=== PATIENT | female | born 1965 | race Caucasian/White ===

== ENCOUNTER 2017-01-08 13:51 | Emergency (ER) | payer OTHER ==
--- NOTE | 2017-01-08 14:39 | DIAGNOSTIC IMAGING REPORT ---
PROCEDURE: XR CHEST 1 VIEW INDICATION: SOB TECHNIQUE: Portable AP view 230 pm COMPARISON: Chest 06/15/2011 FINDINGS: Lungs are clear. Heart and mediastinum are normal. Thorax is normal. IMPRESSION: 1. Negative chest.
--- NOTE | 2017-01-08 17:06 | DIAGNOSTIC IMAGING REPORT ---
PROCEDURE: US VENOUS - BILATERAL EXT INDICATION: SWELLING TECHNIQUE: Color Doppler duplex imaging of the deep and superficial venous system without and with compression. COMPARISON: None. FINDINGS: RIGHT LOWER EXTREMITY: Deep and superficial venous system of the right lower extremity is within normal limits. There is no evidence of deep vein thrombosis or superficial thrombophlebitis. There is calf edema. LEFT LOWER EXTREMITY: Deep and superficial venous system of the left lower extremity is within normal limits. There is no evidence of deep vein thrombosis or superficial thrombophlebitis. There is calf edema. IMPRESSION: 1. Negative venous ultrasound of the bilateral lower extremities. 2. Bilateral calf edema.
--- NOTE | 2017-01-08 17:53 | DIAGNOSTIC IMAGING REPORT ---
PROCEDURE: CTA THORAX WITH CONTRAST INDICATION: SHORTNESS OF BREATH TECHNIQUE: 84 ml of Isovue 370 was injected intravenously and axial images were obtained of the entire thorax with 3D sagittal and coronal MIP reconstructions. COMPARISON: Chest x-ray 01/08/2017. FINDINGS: No evidence of pulmonary emboli. Mild subpleural fibrosis, primarily in the left upper lobe. Minor emphysematous changes. No infiltrates. Mild hilar adenopathy. No effusion. Normal aorta without dissection or aneurysm. Minor coronary atherosclerosis. Normal heart size. Visualized upper abdomen is unremarkable. Mild degenerative changes of the spine. IMPRESSION: 1. No evidence of pulmonary emboli, aortic dissection or aneurysm 2. Mild subpleural fibrosis and minor emphysematous changes 3. Results discussed with Dr. Lan
--- NOTE | 2017-01-08 17:54 | DIAGNOSTIC IMAGING REPORT ---
PROCEDURE: CT ABD/PELVIS WITH CONTRAST CLINICAL INDICATION: ABDOMINAL PAIN TECHNIQUE: 120 ml of Isovue 300 were injected intravenously and axial images were obtained of the entire abdomen and pelvis with sagittal and coronal reformations. COMPARISON: CT abdomen/pelvis 06/15/2011. FINDINGS: ABDOMEN: Lung base are clear. Heart size is normal. Hepatomegaly (20.4 cm) with stable 1.8 cm hypoenhancing lesion in the left hepatic lobe medial segment, adjacent to the falciform ligament, likely focal fat infiltration. Cholecystectomy. Pancreas, spleen, left adrenal gland and kidneys are unremarkable. There is thickening of the right adrenal gland, unchanged. Small retrocrural, mesenteric and periaortic lymph nodes. Midline surgical scar but no evidence of a hernia. Right lower quadrant surgical suture in the region of the cecum. There is a long segment of thickened distal ileum with some fecalization of the small bowel proximal to this abnormal segment. Proximal to the fecalization, there are a few moderately dilated loops of small bowel with air-fluid levels. PELVIS: Redundant sigmoid. Appendix not visualized. Hysterectomy. Adnexa and bladder are unremarkable. Bones are unremarkable. IMPRESSION: 1. Surgical changes in the region of the cecum with a long segment of thickened distal ileum preceded by a short segment of fecalization which itself is preceded by several moderately dilated loops of small bowel. Findings are suggestive of a functional partial small obstruction, secondary to Crohn's disease. 2. Hepatomegaly 3. Midline ventral surgical scar but no evidence of a hernia 4. Cholecystectomy and hysterectomy 5. Results discussed with Dr. Lan All CT scans at this facility use dose modulation, iterative reconstruction, and/or weight-based dosing when appropriate to reduce radiation dose to as low as reasonably achievable.
--- NOTE | 2017-01-08 19:58 | ED ORDER SUMMARY ---
..... Patient: RODGER MAYES OrderSheet [facility] VisitID: [id number] [address] [place] [address] 51y, F Registration Date/Time: 01/08/2017 ORDER SHEET Weight: 70.7 kg (stated) Allergies: Cefzil, Cipro, Levofloxacin, PCN GENERAL ORDERS: Chest 1V Urgent (14:02 01/08/2017 Nilda DUONG) (Ack 14:21 Marie Orona) (14:37 Jenny) Strategic Account Manager (Continuous) (14:02 01/08/2017 Nilda DUONG) (15:53 MWinterer R.N.) CBC w Diff Urgent (14:02 01/08/2017 Nilda DUONG) (Ack 14:21 Marie Orona) (15:57 MWinterer R.N.) CMP Urgent (14:02 01/08/2017 Nilda DUONG) (Ack 14:21 Marie Orona) (15:57 MWinterer R.N.) UA-Culture if indicated Urgent (14:02 01/08/2017 Nilda DUONG) (Ack 14:21 Marie Orona) PT with INR Urgent (14:02 01/08/2017 Nilda DUONG) (Ack 14:21 Marie Orona) (15:57 MWinterer R.N.) PTT Urgent (14:02 01/08/2017 Nilda DUONG) (Ack 14:21 Marie Orona) (15:57 MWinterer R.N.) D-Dimer Urgent (14:02 01/08/2017 Nilda DUONG) (Ack 14:21 Marie Orona) (15:57 MWinterer R.N.) Amylase Urgent (14:02 01/08/2017 Nilda DUONG) (Ack 14:21 Marie Orona) (15:57 MWinterer R.N.) Lipase Urgent (14:02 01/08/2017 Nilda DUONG) (Ack 14:21 Marie Orona) (15:57 MWinterer R.N.) CPK Urgent (14:02 01/08/2017 Nilda DUONG) (Ack 14:21 Marie ER Tech1) (15:57 MWinterer R.N.) Troponin-I Urgent (14:02 01/08/2017 Nilda DUONG) (Ack 14:21 Marie Orona) (15:57 MWinterer R.N.) BNP Urgent (14:02 01/08/2017 Nilda DUONG) (Ack 14:21 Marie Orona) (15:57 MWinterer R.N.) Pulse oximeter (14:02 01/08/2017 Nilda DUONG) (15:53 MWinterer R.N.) EKG - ER Stat (14:02 01/08/2017 Nilda DUONG) (14:[facility] Lactate, Serum Urgent (14:03 01/08/2017 Nilda DUONG) (Ack 14:21 Marie Moreno1) (15:57 MWinterer R.N.) US Venous Bilat Urgent (15:12 01/08/2017 Nilda DUONG) (Ack 15:16 Marie MOORE Tech1) (17:30 Jenny) CTA Thorax w Cont (No) (See report) Urgent (15:14 01/08/2017 Nilda DUONG) (Ack 15:16 Marie Moreno1) (17:30 Jenny) CT Abd/Pel w Cont (No) (See report) Urgent (15:14 01/08/2017 Nilda DUONG) (Ack 15:16 Marie MOORE Tech1) (17:30 Jenny) MEDICATION ORDERS: IV FLUIDS: IV Saline Lock (14:02 01/08/2017 Nilda DUONG) (14:23 SSambou R.N.) Dilaudid IV 0.5 mg (HIGH ALERT MEDICATION, NOW) (15:10 01/08/2017 Nilda DUONG) (15:44 SSambou R.N.) Zofran IV 4 mg (NOW) (15:10 01/08/2017 Nilda DUONG) (15:45 SSambou R.N.) IV NS : initial bolus 500 mL (1000 mL/hr), then 125 mL/hr for 4h (NOW); Urgent (15:11 01/08/2017 Nilda DUONG) (15:53 MWinterer R.NJose E) KCl IV 20 meq/100mL (Run no faster than 10 units/hr, HIGH ALERT MEDICATION, NOW, Run no faster than 10 mEq/hr) (15:13 01/08/2017 Nilda DUONG) (15:46 Noreen R.N.) Dilaudid IV 0.5 mg (HIGH ALERT MEDICATION, NOW) (16:13 01/08/2017 Nilda DUONG) (16:35 Noreen R.N.) ORDER SHEET NOTES: [Electronically signed by Sheriff Jeannine Muse (20:07 01/08/2017)] [Electronically signed by Demetrius Lan MD (09:43 01/09/2017)] [Electronically locked/signed by Sheriff Jeannine Muse (20:07 01/08/2017)]
--- NOTE | 2017-01-08 19:58 | ED NURSING NOTES ---
Clinical Report - Nurses [facility] [address] [place] [address] 01/08/2017 13:54 Patient: RODGER MAYES TRIAGE Triage time 14:02. Chief Complaint: RIGHT LOWER EXTREMITY SWELLING. LEFT LOWER EXTREMITY SWELLING. --14:10 Sheriff Muse R.N. 14:02 01/08/17. BP: 149/77. HR: 104. RR: 18. O2 saturation: 96%. Temp: 98 F. Pain level now: 01/28. --14:10 Sheriff Muse R.N. Weight: 70.7 kg stated. Height/Length: 62 inches Per Patient. BMI: 28.5. --14:03 Sheriff Muse R.N. Medications Albuterol. Fentanyl Transdermal 50 mcg/hr, every 48 hours. --14:06 Sheriff Muse R.N. Cholestyramine Oral 4 gm, daily as needed. --14:11 Sheriff Muse R.N. Diphenoxylate-Atropine Oral (Tablet 2.5-0.025 mg) 1 tablet, as needed. --14:11 Sheriff Muse R.N. Loperamide HCl Oral (Capsule 2 mg) 1 capsule, 4x a day as needed. --14:12 Sheriff Muse R.N. Nicotine Step 1 Transdermal 14mg. --14:13 Sheriff Muse R.N. Zofran ODT Oral (Tablet Dispersible 4 mg) 1 tablet, as needed. --14:14 Sheriff Muse R.N. Allergies Cefzil. Cipr. Cipro. Levofloxacin. PCN. --14:06 Sheriff Muse R.N. History Arrived by private vehicle. Historian: patient. Accompanied by family. No injury occurred. This occurred (9 ago). ( Abdominal cramping and shortness of breath.). SURGERY HX: Appendectomy. Cholecystectomy. Abdominal hernia repair. Had hysterectomy. Tonsillectomy. ( Bowel repair,). SOCIAL HX: Light tobacco smoker- less than 1/2 a pack per day. No alcohol use or drug use. FALL RISK ASSESSMENT: Fall risk assessment completed. No fall risk identified. NUTRITIONAL RISK ASSESSMENT: The nutritional risk assessment revealed no deficiencies. FUNCTIONAL ASSESSMENT: Functional assessment: no impairments noted. LEARNING NEEDS ASSESSMENT: The learning needs assessment revealed no barriers. SKIN INTEGRITY ASSESSMENT: Skin integrity risk assessment completed. No skin integrity risk identified. --14:10 Sheriff Muse R.N. PROBLEMS: Abdominal Pain. Immunizations. Hernia. Crohn's Disease. Depression. Hypertension. Asthma. --14:07 Sheriff Muse R.N. The following entry was modified by Demetrius Lan MD, 15:07 Reason - other <<STRICKEN ENTRY-- Hepatitis. --15:06 Demetrius Lan MD --END STRIKE>> The following entry was modified by Demetrius Lan MD, 15:07 Reason - other <<STRICKEN ENTRY-- Blood clot. --15:06 Demetrius Lan MD --END STRIKE>> The following entry was modified by Demetrius Lan MD, 15:07 Reason - other <<STRICKEN ENTRY-- CVA - Cerebrovascular Accident. --13:40 Demetrius Lan MD --END STRIKE>>. PHYSICAL ASSESSMENT To room via wheelchair. Patient gowned. GENERAL / NEURO / PSYCH: Oriented X 4. Alert. Appears in no acute distress. EXTREMITIES: Right leg: tenderness and swelling. Right ankle: tenderness and swelling and anterior ankle: tenderness and swelling. Right foot: tenderness and swelling. Left leg: tenderness and swelling. Left ankle: tenderness and swelling and anterior ankle: tenderness and swelling. Left foot: tenderness and swelling. SKIN: Skin intact. Skin is warm and dry. --14:16 Sheriff Muse R.N. NURSING PROGRESS NOTES Two patient identifiers checked. Call light placed in reach. Side rails up x 2. Bed placed in lowest position. Brakes of bed on. --14:16 Sheriff Muse R.N. EKG time: (1406). EKG was ordered, performed by a tech and shown to the ED physician. --14:19 Maite Noe ER Tech1 14:18 01/08/2017 Site #1 started via IV in the right antecubital space with an 20g angiocath, with aseptic technique and good blood return; one attempt. Blood drawn: rainbow set. Labeled in the presence of the patient and sent to the lab. Saline lock flushed with 10 mL saline. --14:23 Sheriff Muse R.N. 15:44 01/08/2017 Dilaudid (HYDROmorphone HCl PF) IVP 0.5 mg given over 1 minute(s) via site #1. Allergies verified, confirmed 5 rights and sedative warning given to the patient. IV patency established. IV site checked: no pain, redness, or swelling. IV flushed thoroughly pre- and post-medication administration. IVP given by RN. --15:44 Sheriff Muse R.N. 15:45 01/08/2017 Zofran (Ondansetron HCl) IVP 4 mg given over 1 minute(s) via site #1. Allergies verified and confirmed 5 rights. IV patency established. IV site checked: no pain, redness, or swelling. IV flushed thoroughly pre- and post-medication administration. IVP given by RN. --15:45 Sheriff Muse R.N. 15:46 01/08/2017 Started 20 meq of KCL (Potassium Chloride) IVPB in bag #1 100 mL; at 35 mL/hr over 1.5 hour(s) via site #1; Allergies verified and confirmed 5 rights. IV patency established. IV site checked: no pain, redness, or swelling. IV flushed thoroughly pre- and post-medication administration. --15:46 Sheriff Muse R.N. 15:53 01/08/2017 Started bag #1 1000 mL IV Fluids IV NS (Saline); at 999 mL/hr over 30 minute(s) via site #1 via IV pump. Allergies verified and confirmed 5 rights. IV patency established. IV site checked: no pain, redness, or swelling. IV flushed thoroughly pre- and post-medication administration. --15:53 Susu Hutton R.N. 15:57 01/08/2017 KCL IVPB via IV site #1 Rate Changed: bag #1 decreased to 30 mL/hr. IV patency established. IV site checked: no pain, redness, or swelling. IV flushed thoroughly. (rate decreased due to pt stating her IV "hurt"). --15:57 Susu Hutton R.N. 16:35 01/08/2017 Dilaudid (HYDROmorphone HCl PF) IVP 0.5 mg given over 1 minute(s) via site #1. Allergies verified, confirmed 5 rights and sedative warning given to the patient. IV patency established. IV site checked: no pain, redness, or swelling. IV flushed thoroughly pre- and post-medication administration. IVP given by RN. --16:35 Sheriff Muse R.N. 17:40. Patient ID band checked for patient name and birthdate: patient confirmed. Instructions provided to collect clean catch urine and patient verbalized understanding. Clean catch urine collected with return of yellow-colored clear urine; sample sent to lab for urinalysis and culture. Specimen labeled in the presence of the patient. --17:50 Caitlyn Cardona R.N. 17:36 01/08/2017 Started bag #1 500 mL IV Fluids IV NS (Saline); at 125 mL/hr over 4 hour(s) via site #1 via IV pump. Allergies verified and confirmed 5 rights. IV patency established. IV site checked: no pain, redness, or swelling. IV flushed thoroughly pre- and post-medication administration. --18:01 Sheriff Muse R.N. 19:25 Dr Reilly paged. --19:31 Argentina Castellano, ER Tech1 19:30 Dr Reilly returned call, consulting with . --19:53 Argentina Castellano, ER Tech1. DISPOSITION / DISCHARGE Condition at departure: stable. No learning barriers present. Discharge instructions provided and reviewed with the patient. Reviewed medication(s) side effects, precautions, dosing and course information. Verbalized understanding. Written instructions provided in Sinhala. The patient was discharged by the physician. She was discharged home and accompanied by family. She left the Emergency Department ambulatory and via private vehicle. Family member driving. --20:06 Glory Powell R.N. Locked/Released at 01/08/2017 20:07 by Sheriff Muse R.N.
--- NOTE | 2017-01-08 19:58 | ED ORDER SUMMARY ---
..... Patient: RODGER MAYES OrderSheet [facility] VisitID: [id number] [address] [place] [address] 51y, F Registration Date/Time: 01/08/2017 ORDER SHEET Weight: 70.7 kg (stated) Allergies: Cefzil, Cipro, Levofloxacin, PCN GENERAL ORDERS: Chest 1V Urgent (14:02 01/08/2017 Nilda DUONG) (Ack 14:21 Marie Orona) (14:37 Jenny) Hair Baler (Continuous) (14:02 01/08/2017 Nilda DUONG) (15:53 MWinterer R.N.) CBC w Diff Urgent (14:02 01/08/2017 Nilda DUONG) (Ack 14:21 Marie Orona) (15:57 MWinterer R.N.) CMP Urgent (14:02 01/08/2017 Nilda DUONG) (Ack 14:21 Marie Orona) (15:57 MWinterer R.N.) UA-Culture if indicated Urgent (14:02 01/08/2017 Nilda DUONG) (Ack 14:21 Marie Orona) PT with INR Urgent (14:02 01/08/2017 Nilda DUONG) (Ack 14:21 Marie Orona) (15:57 MWinterer R.N.) PTT Urgent (14:02 01/08/2017 Nilda DUONG) (Ack 14:21 Marie Orona) (15:57 MWinterer R.N.) D-Dimer Urgent (14:02 01/08/2017 Nilda DUONG) (Ack 14:21 Marie Orona) (15:57 MWinterer R.N.) Amylase Urgent (14:02 01/08/2017 Nilda DUONG) (Ack 14:21 Marie Orona) (15:57 MWinterer R.N.) Lipase Urgent (14:02 01/08/2017 Nilda DUONG) (Ack 14:21 Marie Orona) (15:57 MWinterer R.N.) CPK Urgent (14:02 01/08/2017 Nilda DUONG) (Ack 14:21 Marie ER Tech1) (15:57 MWinterer R.N.) Troponin-I Urgent (14:02 01/08/2017 Nilda DUONG) (Ack 14:21 Marie Orona) (15:57 MWinterer R.N.) BNP Urgent (14:02 01/08/2017 Nilda DUONG) (Ack 14:21 Marie Orona) (15:57 MWinterer R.N.) Pulse oximeter (14:02 01/08/2017 Nilda DUONG) (15:53 MWinterer R.N.) EKG - ER Stat (14:02 01/08/2017 Nilda DUONG) ([facility] Lactate, Serum Urgent (14:03 01/08/2017 Nilda DUONG) (Ack 14:21 Marie Moreno1) (15:57 MWinterer R.N.) US Venous Bilat Urgent (15:12 01/08/2017 Nilda DUONG) (Ack 15:16 Marie MOORE Tech1) (17:30 Jenny) CTA Thorax w Cont (No) (See report) Urgent (15:14 01/08/2017 Nilda DUONG) (Ack 15:16 Marie Moreno1) (17:30 Jenny) CT Abd/Pel w Cont (No) (See report) Urgent (15:14 01/08/2017 Nilda DUONG) (Ack 15:16 Marie MOORE Tech1) (17:30 Jenny) MEDICATION ORDERS: IV FLUIDS: IV Saline Lock (14:02 01/08/2017 Nilda DUONG) (14:23 SSambou R.N.) Dilaudid IV 0.5 mg (HIGH ALERT MEDICATION, NOW) (15:10 01/08/2017 Nilda DUONG) (15:44 SSambou R.N.) Zofran IV 4 mg (NOW) (15:10 01/08/2017 Nilda DUONG) (15:45 SSambou R.N.) IV NS : initial bolus 500 mL (1000 mL/hr), then 125 mL/hr for 4h (NOW); Urgent (15:11 01/08/2017 Nilda DUONG) (15:53 MWinterer R.NJose E) KCl IV 20 meq/100mL (Run no faster than 10 units/hr, HIGH ALERT MEDICATION, NOW, Run no faster than 10 mEq/hr) (15:13 01/08/2017 Nilda DUONG) (15:46 Noreen R.N.) Dilaudid IV 0.5 mg (HIGH ALERT MEDICATION, NOW) (16:13 01/08/2017 Nilda DUONG) (16:35 Noreen R.N.) ORDER SHEET NOTES: [Electronically signed by Sheriff Jeannine Muse (20:07 01/08/2017)] [Electronically signed by Demetrius Lan MD (09:43 01/09/2017)] [Electronically locked/signed by Sheriff Jeannine Muse (20:07 01/08/2017)]
--- NOTE | 2017-01-08 19:58 | ED CLINICAL REPORT ---
Clinical Report - Physicians/Mid Levels [facility] [address] [place] [address] 01/08/2017 13:54 Patient: RODGER MAYES Time Seen: 14:01. Arrived- By private vehicle. Historian- patient. HISTORY OF PRESENT ILLNESS Chief Complaint: ABDOMINAL PAIN. This started several months ago and is still present. It was abrupt in onset and has been intermittent and waxing/waning. At its maximum, severity described as 10 / 10. When seen in the E.D., severity described as 8 / 10. Modifying factors- worsened by food. It is described as cramping and burning and it is described as located in the lower abdomen and radiating to the low back. The patient has had nausea and loss of appetite. No vomiting. She has had loose stools. No bloody diarrhea. Similar symptoms previously: Diagnosis: (Crohn's disease). REVIEW OF SYSTEMS No chills, fever, calf pain, palpitations or black stools. No bloody stools, constipation or urinary problems. She has experienced sweats. She has had difficulty breathing (for 2 days). She has had moderate pedal edema involving the right and left leg (for 1 and 1/2 weeks). All systems otherwise negative, except as recorded above. PAST HISTORY PCP - None Surgeon - Jake at [facility]. Problems: TIA - Transient Ischemic Attack. Abdominal Pain. Hernia. Crohn's Disease. Depression. Hypertension. Additional Surgeries: Abdominal Hernia Repair. Appendectomy. Cholecystectomy. Hysterectomy. Resection of ascending colon. Tonsillectomy. Tubal Ligation. Medications: Zofran ODT Oral (Tablet Dispersible 4 mg) 1 tablet, as needed. Loperamide HCl Oral (Capsule 2 mg) 1 capsule, 4x a day as needed. Diphenoxylate-Atropine Oral (Tablet 2.5-0.025 mg) 1 tablet, as needed. Cholestyramine Oral 4 gm, daily as needed. Albuterol. Fentanyl Transdermal 50 mcg/hr, every 48 hours. Allergies: Cefzil. Cipro. Levofloxacin. PCN. SOCIAL HISTORY Current every day light tobacco smoker (cigarette)- less than 1/2 a pack per day. No alcohol use or drug use. FAMILY HISTORY Diabetes in first-degree relative (mother and father); heart disease in first-degree relative (mother and father). ADDITIONAL NOTES The nursing notes have been reviewed. PHYSICAL EXAM Vital Signs: 01/08/2017 14:02 BP: 149/77. HR: 104. RR: 18. O2 saturation: 96%. Temp: 98 F. Pain level now: 01/28. Have been reviewed. Appearance: Alert. Eyes: Pupils equal, round and reactive to light. ENT: Pharynx normal. Neck: Normal inspection. Neck supple. CVS: Normal heart rate and rhythm. Heart sounds normal. Respiratory: No respiratory distress. Breath sounds normal. Abdomen: Soft. Tenderness diffusely. Bowel sounds normal. No organomegaly. No mass. Back: Normal inspection. No CVA tenderness. Skin: Skin warm. Normal skin color. Normal skin turgor. Extremities: Bilateral 1+ pitting edema of the lower extremities involving both feet, both ankles and both lower legs. Mild left-sided calf tenderness. LABS, X-RAYS, AND EKG EKG: Normal EKG. Rate: 99. Prior EKG unavailable. The study has been independently viewed by me. Chest X-ray: Normal Chest X-Ray. Abdominal CT: IMPRESSION: 1. Surgical changes in the region of the cecum with a long segment of thickened distal ileum preceded by a short segment of fecalization which itself is preceded by several moderately dilated loops of small bowel. Findings are suggestive of a functional partial small obstruction, secondary to Crohn's disease. 2. Hepatomegaly 3. Midline ventral surgical scar but no evidence of a hernia 4. Cholecystectomy and hysterectomy. The study was interpreted contemporaneously by me and discussed with the radiologist. Chest CT: (IMPRESSION: 1. No evidence of pulmonary emboli, aortic dissection or aneurysm 2. Mild subpleural fibrosis and minor emphysematous changes). The study was interpreted by the radiologist and contemporaneously by me. Lower Extremity Sonography: IMPRESSION: 1. Negative venous ultrasound of the bilateral lower extremities. 2. Bilateral calf edema. The study was interpreted by the radiologist and contemporaneously by me. Laboratory Tests: Urinalysis: (NAV: 01/08/2017 17:40) ( MsgRcvd 01/08/2017 18:11) Final results Test Result Flag Units (Reference) URINE COLOR YELLOW URINE APPEARANCE CLEAR URINE GLUCOSE NEGATIVE (NEGATIVE) URINE BILIRUBIN NEGATIVE (NEGATIVE) URINE KETONE NEGATIVE (NEGATIVE) URINE SPECIFIC GRAVITY 1.010 (1.010-1.030) URINE PH 7.5 (5.0-8.0) URINE PROTEIN NEGATIVE (NEGATIVE) URINE UROBILINOGEN 0.2 EU/dL (0.2-1.0) URINE NITRITE NEGATIVE (NEGATIVE) URINE BLOOD NEGATIVE (NEGATIVE) URINE LEUKOCYTE ESTERASE NEGATIVE (NEGATIVE) URINE RBC NONE SEEN rbc/hpf (0-1) URINE WBC 0-1 wbc/hpf (0-1) URINE EPITHELIAL CELLS 0-1 EPI/hpf (0-5) URINE BACTERIA NONE SEEN (NONE SEEN) CBC w Diff: (NAV: 01/08/2017 14:08) ( [facility] 01/08/2017 14:28) Final results Test Result Flag Units (Reference) WHITE BLOOD COUNT 8.9 K/uL (4.5-11.5) RED BLOOD COUNT 4.11 M/uL (4.00-5.20) HEMOGLOBIN 11.4 L gm/dL (12.0-16.0) HEMATOCRIT 34.0 L % (36.0-46.0) MEAN CELL VOLUME 83 fL (80-100) MEAN CORPUSCULAR HGB 28 pg (26-34) MEAN CORPUSCULAR HGB CONC 34 g/dL (31-37) RED CELL DISTRIBUTION WIDTH 15.9 H % (11.6-14.8) PLATELET COUNT 378 K/uL (150-400) NEUTROPHIL % 77.2 H % (50-75) LYMPH % 20.5 L % (25-40) MONO % 2.0 L % (3-14) EOSINOPHIL % 0.1 % (0-4) BASOPHIL % 0.2 % (0-2) PT with INR: (NAV: 01/08/2017 14:08) ( [facility] 01/08/2017 14:39) Final results Test Result Flag Units (Reference) INR 1.0 (0.8-1.2) Low Intensity Therapy: INR 1.5-2.0 PT range 18.5-23.1Mod.Intensity Therapy: INR 2.0-3.0 PT range 23.1-31.5High Intensity Therapy: INR 2.5-3.5 PT range 27.4-35.5High Intensity Therapy 2: INR 3.0-4.0 PT range 31.5-39.3 APTT 25 SECONDS (24-34) D-DIMER QUANTITATIVE 0.79 H ug/mLFEU (0.27-0.52) The primary value of this quantitative assay relates toits negative predictive value (i.e. exclusion) of pulmonaryembolism/deep vein thrombosis/DIC.Elevated levels of d-dimer may also occur with:, age, cancer, inflammation, liver disease,post-op, infection, hematoma, coronary disease, peripheralarteriopathy, bleeding disorders and thrombolytic treatment.Results should be correlated with other clinical andradiological data.Testing Methodology: Latex Immunoassay BNP: (NAV: 01/08/2017 14:08) ( [facility] 01/08/2017 14:52) Final results Test Result Flag Units (Reference) B-TYPE NATRIURETIC PEPTIDE 30.4 pg/ml (5-100) CMP: (NAV: 01/08/2017 14:08) ( [facility] 01/08/[place] 14:59) Final results Test Result Flag Units (Reference) GLUCOSE 109 mg/dL (70-110) BUN 9 mg/dL (7-18) CREATININE 0.4 L mg/dL (0.6-1.3) Estimated GFR >60 mL/min Estimated GFR- >60 mL/min Note: Persistent reduction over 3 months in eGFR<60 mL/min/1.73 m2 defines CKD. Patients with eGFR values>=60 mL/min/1.73 m2 may also have CKD if evidence ofpersistent proteinuria. Additional information may be foundat www.kidney.org. SODIUM 141 mmol/L (136-145) POTASSIUM 3.1 L mmol/L (3.5-5.1) CHLORIDE 100 mmol/L (98-107) CARBON DIOXIDE 32 mmol/L (21-32) CALCIUM 8.2 L mg/dL (8.5-10.1) TOTAL PROTEIN 5.7 L g/dL (6.4-8.2) ALBUMIN 2.3 L g/dL (3.3-5.0) BILIRUBIN, TOTAL 0.2 mg/dL (0.0-1.0) ALKALINE PHOSPHATASE 67 U/L (46-116) AST (SGOT) 15 U/L (15-37) ALT (SGPT) 21 U/L (12-78) LIPASE 127 U/L (73-393) AMYLASE 61 U/L (25-115) CPK 23 L U/L (24-260) TROPONIN I <0.05 ng/mL (0.00-1.5) TROPONIN REFERENCE RANGE:<0.1 NEGATIVE0.1-1.5 INDETERMINANT>1.5 POSITIVE Lactate, Serum: (NAV: 01/08/2017 14:08) ( MsgRcvd 01/08/2017 15:19) Final results Test Result Flag Units (Reference) LACTIC ACID 1.7 mmol/L (0.4-2.0) . PROGRESS AND PROCEDURES Course of Care: Patient is stable. Consult obtained. ROBE Reilly - he suggested ensuring that the patient is on budesonide. He also suggests a prescription for some tablets of Vicodin. He thinks the use of magnesium citrate may be helpful as well. He also would like for her to receive a prescription for Flagyl. He also agrees with the use of Lasix for peripheral edema. Case discussed. Phone consult only. Will see patient in the office. Patient/family counseled. Old medical records ordered. Disposition: Discharged. Condition: stable. CLINICAL IMPRESSION Chronic abdominal pain. Crohn's disease. Bilateral pedal edema. INSTRUCTIONS No driving or operating machinery while taking medication. Sedative medication was given during your visit. Drink plenty of fluids. Take clear liquids only. Warnings: Further evaluation is necessary. GENERAL WARNINGS: Return or contact your physician immediately if your condition worsens or changes unexpectedly, if not improving as expected, or if other problems arise. Your Current Medications: CONTINUE TAKING THE FOLLOWING MEDICATIONS: Albuterol. Cholestyramine Oral : 4 gm daily, prn. Diphenoxylate-Atropine Oral : Tablet 2.5-0.025 mg, 1 tablet, prn. Fentanyl Transdermal : 50 mcg/hr every 48 hours. Loperamide HCl Oral : Capsule 2 mg, 1 capsule 4x a day, prn. Zofran ODT Oral : Tablet Dispersible 4 mg, 1 tablet, prn. Prescription Medications: Hydrocodone/APAP 5mg/325mg: take 1 to 2 orally every 6 hours as needed for pain. Dispense fifteen (15). No refills. Flagyl 500 mg: Take 1 tablet orally every 12 hours for 7 days. No refill. Substitution is permissible. Lasix 20 mg: Take 1 orally every 24 hours. Dispense fifteen (15). No refills. Substitution is permissible. Entocort EC 3 mg tabs, # (15) fifteen 3 tabs po daily, no refills. OTC Medications: Magnesium Citrate (10-oz bottle) (available over the counter): take 1/2 bottle to achieve bowel movement. Repeat after 4 hours if needed. Follow-up: Follow up with a pharmacy operations coordinator Dr. Reilly Saturday in three days as scheduled. Understanding of the discharge instructions verbalized by patient. (Electronically signed by Demetrius Lan MD 01/09/2017 9:43)
--- NOTE | 2017-01-09 09:44 | ED MED RECONCILIATION SUMMARY ---
Patient: RODGER MAYES Medication Reconciliation Report [facility] VisitID: [id number] [address] [place] [address] 51y, F Registration Date/Time: 01/08/2017 Weight: 70.7 kg Height/Length: 62 in. BMI: 28.5 ALLERGIES: Cefzil, Cipro, Levofloxacin, PCN The patient's Home Medications are listed below: CONTINUE TAKING THE FOLLOWING MEDICATIONS: Albuterol Cholestyramine Oral 4 gm, daily Diphenoxylate-Atropine Oral (2.5-0.025 mg) 1 tablet Fentanyl Transdermal 50 mcg/hr, every 48 hours Loperamide HCl Oral (2 mg) 1 capsule, 4x a day Zofran ODT Oral (4 mg) 1 tablet The source(s) of the original Home Medication information: Not obtained. The following Medications were given to the patient in the Emergency Department: Dilaudid [IVP] IVP 0.5 mg, administered: 01/08/2017 3:44:00 PM Zofran [IVP] IVP 4 mg, administered: 01/08/2017 3:45:00 PM KCL [IVPB] IVPB bolus 0, then 20 meq 35 mL/hr, administered: 01/08/2017 3:46:00 PM IV NS IV Fluids bolus 0, then 999 mL/hr, administered: 01/08/2017 3:53:00 PM Dilaudid [IVP] IVP 0.5 mg, administered: 01/08/2017 4:35:00 PM IV NS IV Fluids bolus 0, then 125 mL/hr, administered: 01/08/2017 5:36:00 PM The following Medications were prescribed to the patient: Hydrocodone/APAP 5mg/325mg: take 1 to 2 orally every 6 hours as needed for pain. Dispense fifteen (15). No refills. -- Demetrius Lan MD Entocort EC 3 mg tabs, # (15) fifteen3 tabs po daily, no refills. -- Demetrius Lan MD Flagyl 500 mg: Take 1 tablet orally every 12 hours for 7 days. No refill. Substitution is permissible. -- Demetrius Lan MD Lasix 20 mg: Take 1 orally every 24 hours. Dispense fifteen (15). No refills. Substitution is permissible. -- Demetrius Lan MD Magnesium Citrate (10-oz bottle) (available over the counter): take 1/2 bottle to achieve bowel movement. Repeat after 4 hours if needed. -- Demetrius Lan MD
--- NOTE | 2017-01-09 09:44 | ED DISCHARGE INSTRUCTIONS ---
Patient: RODGER MAYES General Instructions [facility] VisitID: [id number] [address] [place] [address] 51y, F Registration Date/Time: 01/08/2017 Chronic abdominal pain. Crohn's disease. Bilateral pedal edema. INSTRUCTIONS No driving or operating machinery while taking medication. Sedative medication was given during your visit. Drink plenty of fluids. Take clear liquids only. Warnings: Further evaluation is necessary. GENERAL WARNINGS: Return or contact your physician immediately if your condition worsens or changes unexpectedly, if not improving as expected, or if other problems arise. Your Current Medications: CONTINUE TAKING THE FOLLOWING MEDICATIONS: Albuterol. Cholestyramine Oral : 4 gm daily, prn. Diphenoxylate-Atropine Oral : Tablet 2.5-0.025 mg, 1 tablet, prn. Fentanyl Transdermal : 50 mcg/hr every 48 hours. Loperamide HCl Oral : Capsule 2 mg, 1 capsule 4x a day, prn. Zofran ODT Oral : Tablet Dispersible 4 mg, 1 tablet, prn. Prescription Medications: Hydrocodone/APAP 5mg/325mg: take 1 to 2 orally every 6 hours as needed for pain. Dispense fifteen (15). No refills. Flagyl 500 mg: Take 1 tablet orally every 12 hours for 7 days. No refill. Substitution is permissible. Lasix 20 mg: Take 1 orally every 24 hours. Dispense fifteen (15). No refills. Substitution is permissible. Entocort EC 3 mg tabs, # (15) fifteen 3 tabs po daily, no refills. OTC Medications: Magnesium Citrate (10-oz bottle) (available over the counter): take 1/2 bottle to achieve bowel movement. Repeat after 4 hours if needed. Follow-up: Follow up with a brown stock washer Dr. Reilly Saturday in three days as scheduled. Understanding of the discharge instructions verbalized by patient. ADDITIONAL INFORMATION Crohns Disease Crohns disease is a chronic inflammation of the intestinal tract that comes and goes. Crohns is a form of Inflammatory Bowel Disease. The exact cause is not known. Chronic diarrhea may alternate with constipation. During a symptom flare, there may be intense abdominal pain and fever. Mucus, blood or pus may appear in the stool. This is a chronic illness and episodes of inflammation come and go over time. When the disease is not active, there are usually no symptoms. Home Care: DIET: Talk to your doctor or ask for a referral to a dietitian to develop a meal plan that works for you. Learn what foods worsen your symptoms. Keeping a food diary may help with this. Eating smaller meals at more frequent intervals (4-5 times a day). Avoid greasy or fried foods. Limit consumption of milk and milk products (butter, margarine, cream sauces). If you are lactose intolerant ask your doctor to advise a digestive supplement. During a flare-up of your symptoms, avoid high fiber foods such as nuts, corn, popcorn and Afghan vegetables. MEDICATIONS: For mild to moderate cramping and diarrhea, you may use Imodium AD ([id number]), unless another medicine was prescribed. For acute flares of your illness, prescription medicines can be prescribed. Contact your doctor if this is needed. Follow Up with your doctor as advised by your staff. Support Groups for persons Crohns disease can be a source of useful information on how others are coping with this illness. They are available in person, on the phone, or via the Internet. Contact the following resources for more information. Crohns [employer] 745.950.2178 www.ccfa.org National Digestive Diseases Information Clearinghouse (NDDIC) 132.665.5935 www.digestive.niddk.nih.gov Get Prompt Medical Attention if any of the following occur: Fever of 100.4F(38C) or higher, or as directed by your healthcare provider Abdominal pain that does not respond to usual measures Mucus, pus or blood in the stool (dark or bright red) Repeated vomiting Abdominal swelling and pain that does not go away after a few hours Leg Swelling [Bilateral] Swelling of the feet, ankles and legs is called "Edema." It is due to excess fluid collecting in the tissues. Because of gravity, excess fluid in the body settles in the lowest part. This is why the legs and feet are most affected. Some of the causes for edema include: Disease of the heart (congestive heart failure or "CHF") Prolonged standing or sitting (with the legs in the down position) Infection of the feet or legs Venous Insufficiency (congestion of blood in the veins of the legs) Varicose veins (dilated veins of the lower leg) Garters, or clothing that constricts your legs. (These will cause venous congestion by restricting blood flow.) Some medicines (hormones such as control pills; some blood pressure medicines, such as calcium channel blockers; steroids; some antidepressants such as MAO inhibitors and tricyclics.) Menstrual periods with fluid retention Renal insufficiency (a form of kidney disease) Liver failure (Some swelling is normal, but a sudden increase in leg swelling or weight gain can be a sign of a dangerous complication of ). Medical treatment will depend on the cause of your swelling. Diuretics (water pills) may be prescribed to remove excess fluid. Home Care: Do not wear garments that constrict your legs (such as garters). Elevate your legs while lying or sitting. If infection, injury or recent surgery is the cause for your swelling, stay off your legs as much as possible until symptoms improve. If your doctor says that your leg swelling is caused by venous insufficiency or varicose veins, do not sit or professor of family medicine one place for long periods of time. Take breaks and walk about every few hours. Brisk walking is a good exercise and helps circulate the congested blood from your leg. Talk to your doctor about the use of support stockings to prevent daytime leg swelling. If your doctor says that heart disease is the cause of your leg swelling, follow a low-salt diet to prevent excess fluid retention. Follow Up with your doctor or as advised by our staff. Get Prompt Medical Attention if any of the following occur: New or worsening shortness of breath or chest pain Increasing swelling in both legs or ankles Swelling of the abdomen Redness, warmth or swelling in one leg Fever of 100.4F (38C) or higher, or as directed by your healthcare provider Yellow color to the skin or eyes Rapid, unexplained weight gain Clear Liquid Diet Clear liquids are any liquid that you can see through as well as those that are very easy to digest. This is used while the body is recovering from irritation or infection of the stomach or intestinal tract. It may also be used before special procedures or surgery. This diet is to be used no more than three days. You may include the following items. Adults Adults should drink a total of 23 quarts of liquid per day. It may be easier to drink small frequent servings rather than a few large ones. Liquids can include: Fruit juices.Strained orange juice or lemonade (no pulp), apple, grape and cranberry juice, clear fruit drinks, sports drinks Beverages.Sport drinks, sodas, mineral water (plain or flavored), tea, black coffee, liquid gelatin (add twice the recommended amount of water) Soups.Clear broth, consomm, bouillon Desserts.Plain gelatin, popsicles, fruit juice bars Children Over 2 years old The following liquids are acceptable for children over age 2: Fruit juices.Strained orange juice or lemonade (no pulp), apple, grape and cranberry juice, clear fruit drinks Beverages. Sports drinks, sodas, mineral water (plain or flavored), tea, liquid gelatin (add twice the recommended amount of water) Soups. Clear broth, consomm, bouillon Desserts. Plain gelatin, popsicles, fruit juice bars Children under 2 years old Oral rehydration fluids such are available at drug stores and most grocery stores without a prescription. Hydrocodone Bitartrate, Acetaminophen Oral tablet What is this medicine? ACETAMINOPHEN; HYDROCODONE (a set a ABIMBOLA balta fen; robb droe KOE done) is a pain reliever. It is used to treat mild to moderate pain. How should I use this medicine? Take this medicine by mouth. Swallow it with a full glass of water. Follow the directions on the prescription label. If the medicine upsets your stomach, take the medicine with food or milk. Do not take more than you are told to take. Talk to your package sealer machine regarding the use of this medicine in children. This medicine is not approved for use in children. What side effects may I notice from receiving this medicine? Side effects that you should report to your doctor or health day care director as soon as possible: allergic reactions like skin rash, itching or hives, swelling of the face, lips, or tongue breathing problems confusion feeling faint or lightheaded, falls stomach pain yellowing of the eyes or skin Side effects that usually do not require medical attention (report to your doctor or health day care director if they continue or are bothersome): nausea, vomiting stomach upset What may interact with this medicine? alcohol antihistamines isoniazid medicines for depression, anxiety, or psychotic disturbances medicines for sleep muscle relaxants naltrexone narcotic medicines (opiates) for pain phenobarbital ritonavir tramadol What if I miss a dose? If you miss a dose, take it as soon as you can. If it is almost time for your next dose, take only that dose. Do not take double or extra doses. Where should I keep my medicine? Keep out of the reach of children. This medicine can be abused. Keep your medicine in a safe place to protect it from theft. Do not share this medicine with anyone. Selling or giving away this medicine is dangerous and against the law. Store at room temperature between 15 and 30 degrees C (59 and 86 degrees F). Protect from light. Keep container tightly closed. Throw away any unused medicine after the expiration date. Discard unused medicine and used packaging carefully. Pets and children can be harmed if they find used or lost packages. What should I tell my health care provider before I take this medicine? They need to know if you have any of these conditions: brain tumor Crohn's disease, inflammatory bowel disease, or ulcerative colitis drink more than 3 alcohol-containing drinks per day drug abuse or addiction head injury heart or circulation problems kidney disease or problems going to the bathroom liver disease lung disease, asthma, or breathing problems an unusual or allergic reaction to acetaminophen, hydrocodone, other opioid analgesics, other medicines, foods, dyes, or preservatives or trying to get breast-feeding What should I watch for while using this medicine? Tell your doctor or health day care director if your pain does not go away, if it gets worse, or if you have new or a different type of pain. You may develop tolerance to the medicine. Tolerance means that you will need a higher dose of the medicine for pain relief. Tolerance is normal and is expected if you take the medicine for a long time. Do not suddenly stop taking your medicine because you may develop a severe reaction. Your body becomes used to the medicine. This does NOT mean you are addicted. Addiction is a behavior related to getting and using a drug for a non-medical reason. If you have pain, you have a medical reason to take pain medicine. Your doctor will tell you how much medicine to take. If your doctor wants you to stop the medicine, the dose will be slowly lowered over time to avoid any side effects. You may get drowsy or dizzy when you first start taking the medicine or change doses. Do not drive, use machinery, or do anything that may be dangerous until you know how the medicine affects you. Stand or sit up slowly. There are different types of narcotic medicines (opiates) for pain. If you take more than one type at the same time, you may have more side effects. Give your health care provider a list of all medicines you use. Your doctor will tell you how much medicine to take. Do not take more medicine than directed. Call emergency for help if you have problems breathing. The medicine will cause constipation. Try to have a bowel movement at least every 2 to 3 days. If you do not have a bowel movement for 3 days, call your doctor or health day care director. Too much acetaminophen can be very dangerous. Do not take Tylenol (acetaminophen) or medicines that contain acetaminophen with this medicine. Many non-prescription medicines contain acetaminophen. Always read the labels carefully. Metronidazole Oral tablet What is this medicine? METRONIDAZOLE (me troe NI da zole) is an antiinfective. It is used to treat certain kinds of bacterial and protozoal infections. It will not work for colds, flu, or other viral infections. How should I use this medicine? Take this medicine by mouth with a full glass of water. Follow the directions on the prescription label. Take your medicine at regular intervals. Do not take your medicine more often than directed. Take all of your medicine as directed even if you think you are better. Do not skip doses or stop your medicine early. Talk to your package sealer machine regarding the use of this medicine in children. Special care may be needed. What side effects may I notice from receiving this medicine? Side effects that you should report to your doctor or health day care director as soon as possible: allergic reactions like skin rash or hives, swelling of the face, lips, or tongue confusion, clumsiness difficulty speaking discolored or sore mouth dizziness fever, infection numbness, tingling, pain or weakness in the hands or feet trouble passing urine or change in the amount of urine redness, blistering, peeling or loosening of the skin, including inside the mouth seizures unusually weak or tired vaginal irritation, dryness, or discharge Side effects that usually do not require medical attention (report to your doctor or health day care director if they continue or are bothersome): diarrhea headache irritability metallic taste nausea stomach pain or cramps trouble sleeping What may interact with this medicine? Do not take this medicine with any of the following medications: alcohol or any product that contains alcohol amprenavir oral solution cisapride disulfiram dofetilide dronedarone paclitaxel injection pimozide ritonavir oral solution sertraline oral solution sulfamethoxazole-trimethoprim injection thioridazine ziprasidone This medicine may also interact with the following medications: cimetidine lithium other medicines that prolong the QT interval (cause an abnormal heart rhythm) phenobarbital phenytoin warfarin What if I miss a dose? If you miss a dose, take it as soon as you can. If it is almost time for your next dose, take only that dose. Do not take double or extra doses. Where should I keep my medicine? Keep out of the reach of children. Store at room temperature below 25 degrees C (77 degrees F). Protect from light. Keep container tightly closed. Throw away any unused medicine after the expiration date. What should I tell my health care provider before I take this medicine? They need to know if you have any of these conditions: anemia or other blood disorders disease of the nervous system fungal or yeast infection if you drink alcohol containing drinks liver disease seizures an unusual or allergic reaction to metronidazole, or other medicines, foods, dyes, or preservatives or trying to get breast-feeding What should I watch for while using this medicine? Tell your doctor or health day care director if your symptoms do not improve or if they get worse. You may get drowsy or dizzy. Do not drive, use machinery, or do anything that needs mental alertness until you know how this medicine affects you. Do not stand or sit up quickly, especially if you are an older patient. This reduces the risk of dizzy or fainting spells. Avoid alcoholic drinks while you are taking this medicine and for three days afterward. Alcohol may make you feel dizzy, sick, or flushed. If you are being treated for a sexually transmitted disease, avoid sexual contact until you have finished your treatment. Your sexual partner may also need treatment. Furosemide Oral tablet What is this medicine? FUROSEMIDE (fyoor [place] se mide) is a diuretic. It helps you make more urine and to lose salt and excess water from your body. This medicine is used to treat high blood pressure, and edema or swelling from heart, kidney, or liver disease. How should I use this medicine? Take this medicine by mouth with a glass of water. Follow the directions on the prescription label. You may take this medicine with or without food. If it upsets your stomach, take it with food or milk. Do not take your medicine more often than directed. Remember that you will need to pass more urine after taking this medicine. Do not take your medicine at a time of day that will cause you problems. Do not take at bedtime. Talk to your package sealer machine regarding the use of this medicine in children. While this drug may be prescribed for selected conditions, precautions do apply. What side effects may I notice from receiving this medicine? Side effects that you should report to your doctor or health day care director as soon as possible: blood in urine or stools dry mouth fever or chills hearing loss or ringing in the ears irregular heartbeat muscle pain or weakness, cramps skin rash stomach upset, pain, or nausea tingling or numbness in the hands or feet unusually weak or tired vomiting or diarrhea yellowing of the eyes or skin Side effects that usually do not require medical attention (report to your doctor or health day care director if they continue or are bothersome): headache loss of appetite unusual bleeding or bruising What may interact with this medicine? aspirin and aspirin-like medicines certain antibiotics chloral hydrate cisplatin cyclosporine digoxin diuretics laxatives lithium medicines for blood pressure medicines that relax muscles for surgery methotrexate NSAIDs, medicines for pain and inflammation like ibuprofen, naproxen, or indomethacin phenytoin steroid medicines like prednisone or cortisone sucralfate What if I miss a dose? If you miss a dose, take it as soon as you can. If it is almost time for your next dose, take only that dose. Do not take double or extra doses. Where should I keep my medicine? Keep out of the reach of children. Store at room temperature between 15 and 30 degrees C (59 and 86 degrees F). Protect from light. Throw away any unused medicine after the expiration date. What should I tell my health care provider before I take this medicine? They need to know if you have any of these conditions: abnormal blood electrolytes diarrhea or vomiting gout heart disease kidney disease, small amounts of urine, or difficulty passing urine liver disease an unusual or allergic reaction to furosemide, sulfa drugs, other medicines, foods, dyes, or preservatives or trying to get breast-feeding What should I watch for while using this medicine? Visit your doctor or health day care director for regular checks on your progress. Check your blood pressure regularly. Ask your doctor or health day care director what your blood pressure should be, and when you should contact him or her. If you are a diabetic, check your blood sugar as directed. You may need to be on a special diet while taking this medicine. Check with your doctor. Also, ask how many glasses of fluid you need to drink a day. You must not get dehydrated. You may get drowsy or dizzy. Do not drive, use machinery, or do anything that needs mental alertness until you know how this drug affects you. Do not stand or sit up quickly, especially if you are an older patient. This reduces the risk of dizzy or fainting spells. Alcohol can make you more drowsy and dizzy. Avoid alcoholic drinks. This medicine can make you more sensitive to the sun. Keep out of the sun. If you cannot avoid being in the sun, wear protective clothing and use sunscreen. Do not use sun lamps or tanning beds/booths. You have been given the following additional information: Crohn's Disease Peripheral Edema, Bilateral Diet, Clear Liquid Hydrocodone Bitartrate, Acetaminophen Oral tablet Metronidazole Oral tablet Furosemide Oral tablet No driving or operating machinery while taking medication. Sedative medication was given during your visit. (Electronically signed by Demetrius Lan MD 01/09/2017 9:43)
--- NOTE | 2017-01-09 09:44 | ED MAR SUMMARY ---
..... Medication Administration Record [facility] [address] [place] [address] Patient: RODGER MAYES Visit ID: [id number] 51y, F Weight: 70.7 kg Height/Length: 62 in BMI: 28.5 ALLERGIES: Cefzil, Cipro, Levofloxacin, PCN Given 15:44 01/08/2017 Sheriff Muse R.N. Medication Administered: DILAUDID [IVP] (HYDROMORPHONE HCL PF), Dose: 0.5 mg IVP over 1 minute(s), Site: #1 right AC. Medication Ordered: Dilaudid IV 0.5 mg (HIGH ALERT MEDICATION, NOW). Given 15:45 01/08/2017 Sheriff Muse R.N. Medication Administered: ZOFRAN [IVP] (ONDANSETRON HCL), Dose: 4 mg IVP over 1 minute(s), Site: #1 right AC. Medication Ordered: Zofran IV 4 mg (NOW). Start 15:46 01/08/2017 Sheriff Muse R.N. Medication Administered: KCL [IVPB] (POTASSIUM CHLORIDE), Dose: 20 meq IVPB over 1.5 hour(s), Rate: 35 mL/hr, Dispensed: 100 mL bag, Site: #1 right AC. Medication Ordered: KCl IV 20 meq/100mL (Run no faster than 10 units/hr, HIGH ALERT MEDICATION, NOW, Run no faster than 10 mEq/hr). Start 15:53 01/08/2017 Susu Hutton R.N. Medication Administered: IV NS (SALINE), Dose: IV Fluids over 30 minute(s), Rate: 999 mL/hr, Dispensed: 1000 mL bag, Site: #1 right AC. Medication Ordered: IV NS : initial bolus 500 mL (1000 mL/hr), then 125 mL/hr for 4h (NOW); Urgent. Given 16:35 01/08/2017 Sheriff Muse R.N. Medication Administered: DILAUDID [IVP] (HYDROMORPHONE HCL PF), Dose: 0.5 mg IVP over 1 minute(s), Site: #1 right AC. Medication Ordered: Dilaudid IV 0.5 mg (HIGH ALERT MEDICATION, NOW). Start 17:36 01/08/2017 Sheriff Muse R.N. Medication Administered: IV NS (SALINE), Dose: IV Fluids over 4 hour(s), Rate: 125 mL/hr, Dispensed: 500 mL bag, Site: #1 right AC. Medication Ordered: IV NS : initial bolus 500 mL (1000 mL/hr), then 125 mL/hr for 4h (NOW); Urgent.
--- NOTE | 2017-01-09 09:44 | ED MED RECONCILIATION SUMMARY ---
Patient: RODGER MAYES Medication Reconciliation Report [facility] VisitID: [id number] [address] [place] [address] 51y, F Registration Date/Time: 01/08/2017 Weight: 70.7 kg Height/Length: 62 in. BMI: 28.5 ALLERGIES: Cefzil, Cipro, Levofloxacin, PCN The patient's Home Medications are listed below: CONTINUE TAKING THE FOLLOWING MEDICATIONS: Albuterol Cholestyramine Oral 4 gm, daily Diphenoxylate-Atropine Oral (2.5-0.025 mg) 1 tablet Fentanyl Transdermal 50 mcg/hr, every 48 hours Loperamide HCl Oral (2 mg) 1 capsule, 4x a day Zofran ODT Oral (4 mg) 1 tablet The source(s) of the original Home Medication information: Not obtained. The following Medications were given to the patient in the Emergency Department: Dilaudid [IVP] IVP 0.5 mg, administered: 01/08/2017 3:44:00 PM Zofran [IVP] IVP 4 mg, administered: 01/08/2017 3:45:00 PM KCL [IVPB] IVPB bolus 0, then 20 meq 35 mL/hr, administered: 01/08/2017 3:46:00 PM IV NS IV Fluids bolus 0, then 999 mL/hr, administered: 01/08/2017 3:53:00 PM Dilaudid [IVP] IVP 0.5 mg, administered: 01/08/2017 4:35:00 PM IV NS IV Fluids bolus 0, then 125 mL/hr, administered: 01/08/2017 5:36:00 PM The following Medications were prescribed to the patient: Hydrocodone/APAP 5mg/325mg: take 1 to 2 orally every 6 hours as needed for pain. Dispense fifteen (15). No refills. -- Demetrius Lan MD Entocort EC 3 mg tabs, # [phone]) fifteen3 tabs po daily, no refills. -- Demetrius Lan MD Flagyl 500 mg: Take 1 tablet orally every 12 hours for 7 days. No refill. Substitution is permissible. -- Demetrius Lan MD Lasix 20 mg: Take 1 orally every 24 hours. Dispense fifteen (15). No refills. Substitution is permissible. -- Demetrius Lan MD Magnesium Citrate (10-oz bottle) (available over the counter): take 1/2 bottle to achieve bowel movement. Repeat after 4 hours if needed. -- Demetrius Lan MD
--- NOTE | 2017-01-09 09:44 | ED MAR SUMMARY ---
..... Medication Administration Record [facility] [address] [place] [address] Patient: RODGER MAYES Visit ID: [id number] 51y, F Weight: 70.7 kg Height/Length: 62 in BMI: 28.5 ALLERGIES: Cefzil, Cipro, Levofloxacin, PCN Given 15:44 01/08/2017 Sheriff Muse R.N. Medication Administered: DILAUDID [IVP] (HYDROMORPHONE HCL PF), Dose: 0.5 mg IVP over 1 minute(s), Site: #1 right AC. Medication Ordered: Dilaudid IV 0.5 mg (HIGH ALERT MEDICATION, NOW). Given 15:45 01/08/2017 Sheriff Muse R.N. Medication Administered: ZOFRAN [IVP] (ONDANSETRON HCL), Dose: 4 mg IVP over 1 minute(s), Site: #1 right AC. Medication Ordered: Zofran IV 4 mg (NOW). Start 15:46 01/08/2017 Sheriff Muse R.N. Medication Administered: KCL [IVPB] (POTASSIUM CHLORIDE), Dose: 20 meq IVPB over 1.5 hour(s), Rate: 35 mL/hr, Dispensed: 100 mL bag, Site: #1 right AC. Medication Ordered: KCl IV 20 meq/100mL (Run no faster than 10 units/hr, HIGH ALERT MEDICATION, NOW, Run no faster than 10 mEq/hr). Start 15:53 01/08/2017 Susu Hutton R.N. Medication Administered: IV NS (SALINE), Dose: IV Fluids over 30 minute(s), Rate: 999 mL/hr, Dispensed: 1000 mL bag, Site: #1 right AC. Medication Ordered: IV NS : initial bolus 500 mL (1000 mL/hr), then 125 mL/hr for 4h (NOW); Urgent. Given 16:35 01/08/2017 Sheriff Muse R.N. Medication Administered: DILAUDID [IVP] (HYDROMORPHONE HCL PF), Dose: 0.5 mg IVP over 1 minute(s), Site: #1 right AC. Medication Ordered: Dilaudid IV 0.5 mg (HIGH ALERT MEDICATION, NOW). Start 17:36 01/08/2017 Sheriff Muse R.N. Medication Administered: IV NS (SALINE), Dose: IV Fluids over 4 hour(s), Rate: 125 mL/hr, Dispensed: 500 mL bag, Site: #1 right AC. Medication Ordered: IV NS : initial bolus 500 mL (1000 mL/hr), then 125 mL/hr for 4h (NOW); Urgent.
--- NOTE | 2017-01-09 09:44 | ED DISCHARGE INSTRUCTIONS ---
Patient: RODGER MAYES General Instructions [facility] VisitID: [id number] [address] [place] [address] 51y, F Registration Date/Time: 01/08/2017 Chronic abdominal pain. Crohn's disease. Bilateral pedal edema. INSTRUCTIONS No driving or operating machinery while taking medication. Sedative medication was given during your visit. Drink plenty of fluids. Take clear liquids only. Warnings: Further evaluation is necessary. GENERAL WARNINGS: Return or contact your physician immediately if your condition worsens or changes unexpectedly, if not improving as expected, or if other problems arise. Your Current Medications: CONTINUE TAKING THE FOLLOWING MEDICATIONS: Albuterol. Cholestyramine Oral : 4 gm daily, prn. Diphenoxylate-Atropine Oral : Tablet 2.5-0.025 mg, 1 tablet, prn. Fentanyl Transdermal : 50 mcg/hr every 48 hours. Loperamide HCl Oral : Capsule 2 mg, 1 capsule 4x a day, prn. Zofran ODT Oral : Tablet Dispersible 4 mg, 1 tablet, prn. Prescription Medications: Hydrocodone/APAP 5mg/325mg: take 1 to 2 orally every 6 hours as needed for pain. Dispense fifteen (15). No refills. Flagyl 500 mg: Take 1 tablet orally every 12 hours for 7 days. No refill. Substitution is permissible. Lasix 20 mg: Take 1 orally every 24 hours. Dispense fifteen (15). No refills. Substitution is permissible. Entocort EC 3 mg tabs, # (15) fifteen 3 tabs po daily, no refills. OTC Medications: Magnesium Citrate (10-oz bottle) (available over the counter): take 1/2 bottle to achieve bowel movement. Repeat after 4 hours if needed. Follow-up: Follow up with a hatchery supervisor Dr. Reilly Saturday in three days as scheduled. Understanding of the discharge instructions verbalized by patient. ADDITIONAL INFORMATION Crohns Disease Crohns disease is a chronic inflammation of the intestinal tract that comes and goes. Crohns is a form of Inflammatory Bowel Disease. The exact cause is not known. Chronic diarrhea may alternate with constipation. During a symptom flare, there may be intense abdominal pain and fever. Mucus, blood or pus may appear in the stool. This is a chronic illness and episodes of inflammation come and go over time. When the disease is not active, there are usually no symptoms. Home Care: DIET: Talk to your doctor or ask for a referral to a dietitian to develop a meal plan that works for you. Learn what foods worsen your symptoms. Keeping a food diary may help with this. Eating smaller meals at more frequent intervals (4-5 times a day). Avoid greasy or fried foods. Limit consumption of milk and milk products (butter, margarine, cream sauces). If you are lactose intolerant ask your doctor to advise a digestive supplement. During a flare-up of your symptoms, avoid high fiber foods such as nuts, corn, popcorn and [place] vegetables. MEDICATIONS: For mild to moderate cramping and diarrhea, you may use Imodium AD ([id number]), unless another medicine was prescribed. For acute flares of your illness, prescription medicines can be prescribed. Contact your doctor if this is needed. Follow Up with your doctor as advised by your staff. Support Groups for persons Crohns disease can be a source of useful information on how others are coping with this illness. They are available in person, on the phone, or via the Internet. Contact the following resources for more information. Croh[employer] 268.864.1958 www.ccfa.org National Digestive Diseases Information Clearinghouse (NDDIC) 793.197.9220 www.digestive.niddk.nih.gov Get Prompt Medical Attention if any of the following occur: Fever of 100.4F(38C) or higher, or as directed by your healthcare provider Abdominal pain that does not respond to usual measures Mucus, pus or blood in the stool (dark or bright red) Repeated vomiting Abdominal swelling and pain that does not go away after a few hours Leg Swelling [Bilateral] Swelling of the feet, ankles and legs is called "Edema." It is due to excess fluid collecting in the tissues. Because of gravity, excess fluid in the body settles in the lowest part. This is why the legs and feet are most affected. Some of the causes for edema include: Disease of the heart (congestive heart failure or "CHF") Prolonged standing or sitting (with the legs in the down position) Infection of the feet or legs Venous Insufficiency (congestion of blood in the veins of the legs) Varicose veins (dilated veins of the lower leg) Garters, or clothing that constricts your legs. (These will cause venous congestion by restricting blood flow.) Some medicines (hormones such as control pills; some blood pressure medicines, such as calcium channel blockers; steroids; some antidepressants such as MAO inhibitors and tricyclics.) Menstrual periods with fluid retention Renal insufficiency (a form of kidney disease) Liver failure (Some swelling is normal, but a sudden increase in leg swelling or weight gain can be a sign of a dangerous complication of ). Medical treatment will depend on the cause of your swelling. Diuretics (water pills) may be prescribed to remove excess fluid. Home Care: Do not wear garments that constrict your legs (such as garters). Elevate your legs while lying or sitting. If infection, injury or recent surgery is the cause for your swelling, stay off your legs as much as possible until symptoms improve. If your doctor says that your leg swelling is caused by venous insufficiency or varicose veins, do not sit or wire coiler machine operator one place for long periods of time. Take breaks and walk about every few hours. Brisk walking is a good exercise and helps circulate the congested blood from your leg. Talk to your doctor about the use of support stockings to prevent daytime leg swelling. If your doctor says that heart disease is the cause of your leg swelling, follow a low-salt diet to prevent excess fluid retention. Follow Up with your doctor or as advised by our staff. Get Prompt Medical Attention if any of the following occur: New or worsening shortness of breath or chest pain Increasing swelling in both legs or ankles Swelling of the abdomen Redness, warmth or swelling in one leg Fever of 100.4F (38C) or higher, or as directed by your healthcare provider Yellow color to the skin or eyes Rapid, unexplained weight gain Clear Liquid Diet Clear liquids are any liquid that you can see through as well as those that are very easy to digest. This is used while the body is recovering from irritation or infection of the stomach or intestinal tract. It may also be used before special procedures or surgery. This diet is to be used no more than three days. You may include the following items. Adults Adults should drink a total of 23 quarts of liquid per day. It may be easier to drink small frequent servings rather than a few large ones. Liquids can include: Fruit juices.Strained orange juice or lemonade (no pulp), apple, grape and cranberry juice, clear fruit drinks, sports drinks Beverages.Sport drinks, sodas, mineral water (plain or flavored), tea, black coffee, liquid gelatin (add twice the recommended amount of water) Soups.Clear broth, consomm, bouillon Desserts.Plain gelatin, popsicles, fruit juice bars Children Over 2 years old The following liquids are acceptable for children over age 2: Fruit juices.Strained orange juice or lemonade (no pulp), apple, grape and cranberry juice, clear fruit drinks Beverages. Sports drinks, sodas, mineral water (plain or flavored), tea, liquid gelatin (add twice the recommended amount of water) Soups. Clear broth, consomm, bouillon Desserts. Plain gelatin, popsicles, fruit juice bars Children under 2 years old Oral rehydration fluids such are available at drug stores and most grocery stores without a prescription. Hydrocodone Bitartrate, Acetaminophen Oral tablet What is this medicine? ACETAMINOPHEN; HYDROCODONE (a set a ABIMBOLA balta fen; robb droe KOE done) is a pain reliever. It is used to treat mild to moderate pain. How should I use this medicine? Take this medicine by mouth. Swallow it with a full glass of water. Follow the directions on the prescription label. If the medicine upsets your stomach, take the medicine with food or milk. Do not take more than you are told to take. Talk to your head of merchandise buying regarding the use of this medicine in children. This medicine is not approved for use in children. What side effects may I notice from receiving this medicine? Side effects that you should report to your doctor or health managed care specialist as soon as possible: allergic reactions like skin rash, itching or hives, swelling of the face, lips, or tongue breathing problems confusion feeling faint or lightheaded, falls stomach pain yellowing of the eyes or skin Side effects that usually do not require medical attention (report to your doctor or health managed care specialist if they continue or are bothersome): nausea, vomiting stomach upset What may interact with this medicine? alcohol antihistamines isoniazid medicines for depression, anxiety, or psychotic disturbances medicines for sleep muscle relaxants naltrexone narcotic medicines (opiates) for pain phenobarbital ritonavir tramadol What if I miss a dose? If you miss a dose, take it as soon as you can. If it is almost time for your next dose, take only that dose. Do not take double or extra doses. Where should I keep my medicine? Keep out of the reach of children. This medicine can be abused. Keep your medicine in a safe place to protect it from theft. Do not share this medicine with anyone. Selling or giving away this medicine is dangerous and against the law. Store at room temperature between 15 and 30 degrees C (59 and 86 degrees F). Protect from light. Keep container tightly closed. Throw away any unused medicine after the expiration date. Discard unused medicine and used packaging carefully. Pets and children can be harmed if they find used or lost packages. What should I tell my health care provider before I take this medicine? They need to know if you have any of these conditions: brain tumor Crohn's disease, inflammatory bowel disease, or ulcerative colitis drink more than 3 alcohol-containing drinks per day drug abuse or addiction head injury heart or circulation problems kidney disease or problems going to the bathroom liver disease lung disease, asthma, or breathing problems an unusual or allergic reaction to acetaminophen, hydrocodone, other opioid analgesics, other medicines, foods, dyes, or preservatives or trying to get breast-feeding What should I watch for while using this medicine? Tell your doctor or health managed care specialist if your pain does not go away, if it gets worse, or if you have new or a different type of pain. You may develop tolerance to the medicine. Tolerance means that you will need a higher dose of the medicine for pain relief. Tolerance is normal and is expected if you take the medicine for a long time. Do not suddenly stop taking your medicine because you may develop a severe reaction. Your body becomes used to the medicine. This does NOT mean you are addicted. Addiction is a behavior related to getting and using a drug for a non-medical reason. If you have pain, you have a medical reason to take pain medicine. Your doctor will tell you how much medicine to take. If your doctor wants you to stop the medicine, the dose will be slowly lowered over time to avoid any side effects. You may get drowsy or dizzy when you first start taking the medicine or change doses. Do not drive, use machinery, or do anything that may be dangerous until you know how the medicine affects you. Stand or sit up slowly. There are different types of narcotic medicines (opiates) for pain. If you take more than one type at the same time, you may have more side effects. Give your health care provider a list of all medicines you use. Your doctor will tell you how much medicine to take. Do not take more medicine than directed. Call emergency for help if you have problems breathing. The medicine will cause constipation. Try to have a bowel movement at least every 2 to 3 days. If you do not have a bowel movement for 3 days, call your doctor or health managed care specialist. Too much acetaminophen can be very dangerous. Do not take Tylenol (acetaminophen) or medicines that contain acetaminophen with this medicine. Many non-prescription medicines contain acetaminophen. Always read the labels carefully. Metronidazole Oral tablet What is this medicine? METRONIDAZOLE (me troe NI da zole) is an antiinfective. It is used to treat certain kinds of bacterial and protozoal infections. It will not work for colds, flu, or other viral infections. How should I use this medicine? Take this medicine by mouth with a full glass of water. Follow the directions on the prescription label. Take your medicine at regular intervals. Do not take your medicine more often than directed. Take all of your medicine as directed even if you think you are better. Do not skip doses or stop your medicine early. Talk to your head of merchandise buying regarding the use of this medicine in children. Special care may be needed. What side effects may I notice from receiving this medicine? Side effects that you should report to your doctor or health managed care specialist as soon as possible: allergic reactions like skin rash or hives, swelling of the face, lips, or tongue confusion, clumsiness difficulty speaking discolored or sore mouth dizziness fever, infection numbness, tingling, pain or weakness in the hands or feet trouble passing urine or change in the amount of urine redness, blistering, peeling or loosening of the skin, including inside the mouth seizures unusually weak or tired vaginal irritation, dryness, or discharge Side effects that usually do not require medical attention (report to your doctor or health managed care specialist if they continue or are bothersome): diarrhea headache irritability metallic taste nausea stomach pain or cramps trouble sleeping What may interact with this medicine? Do not take this medicine with any of the following medications: alcohol or any product that contains alcohol amprenavir oral solution cisapride disulfiram dofetilide dronedarone paclitaxel injection pimozide ritonavir oral solution sertraline oral solution sulfamethoxazole-trimethoprim injection thioridazine ziprasidone This medicine may also interact with the following medications: cimetidine lithium other medicines that prolong the QT interval (cause an abnormal heart rhythm) phenobarbital phenytoin warfarin What if I miss a dose? If you miss a dose, take it as soon as you can. If it is almost time for your next dose, take only that dose. Do not take double or extra doses. Where should I keep my medicine? Keep out of the reach of children. Store at room temperature below 25 degrees C (77 degrees F). Protect from light. Keep container tightly closed. Throw away any unused medicine after the expiration date. What should I tell my health care provider before I take this medicine? They need to know if you have any of these conditions: anemia or other blood disorders disease of the nervous system fungal or yeast infection if you drink alcohol containing drinks liver disease seizures an unusual or allergic reaction to metronidazole, or other medicines, foods, dyes, or preservatives or trying to get breast-feeding What should I watch for while using this medicine? Tell your doctor or health managed care specialist if your symptoms do not improve or if they get worse. You may get drowsy or dizzy. Do not drive, use machinery, or do anything that needs mental alertness until you know how this medicine affects you. Do not stand or sit up quickly, especially if you are an older patient. This reduces the risk of dizzy or fainting spells. Avoid alcoholic drinks while you are taking this medicine and for three days afterward. Alcohol may make you feel dizzy, sick, or flushed. If you are being treated for a sexually transmitted disease, avoid sexual contact until you have finished your treatment. Your sexual partner may also need treatment. Furosemide Oral tablet What is this medicine? FUROSEMIDE (fyoor [place] se mide) is a diuretic. It helps you make more urine and to lose salt and excess water from your body. This medicine is used to treat high blood pressure, and edema or swelling from heart, kidney, or liver disease. How should I use this medicine? Take this medicine by mouth with a glass of water. Follow the directions on the prescription label. You may take this medicine with or without food. If it upsets your stomach, take it with food or milk. Do not take your medicine more often than directed. Remember that you will need to pass more urine after taking this medicine. Do not take your medicine at a time of day that will cause you problems. Do not take at bedtime. Talk to your head of merchandise buying regarding the use of this medicine in children. While this drug may be prescribed for selected conditions, precautions do apply. What side effects may I notice from receiving this medicine? Side effects that you should report to your doctor or health managed care specialist as soon as possible: blood in urine or stools dry mouth fever or chills hearing loss or ringing in the ears irregular heartbeat muscle pain or weakness, cramps skin rash stomach upset, pain, or nausea tingling or numbness in the hands or feet unusually weak or tired vomiting or diarrhea yellowing of the eyes or skin Side effects that usually do not require medical attention (report to your doctor or health managed care specialist if they continue or are bothersome): headache loss of appetite unusual bleeding or bruising What may interact with this medicine? aspirin and aspirin-like medicines certain antibiotics chloral hydrate cisplatin cyclosporine digoxin diuretics laxatives lithium medicines for blood pressure medicines that relax muscles for surgery methotrexate NSAIDs, medicines for pain and inflammation like ibuprofen, naproxen, or indomethacin phenytoin steroid medicines like prednisone or cortisone sucralfate What if I miss a dose? If you miss a dose, take it as soon as you can. If it is almost time for your next dose, take only that dose. Do not take double or extra doses. Where should I keep my medicine? Keep out of the reach of children. Store at room temperature between 15 and 30 degrees C (59 and 86 degrees F). Protect from light. Throw away any unused medicine after the expiration date. What should I tell my health care provider before I take this medicine? They need to know if you have any of these conditions: abnormal blood electrolytes diarrhea or vomiting gout heart disease kidney disease, small amounts of urine, or difficulty passing urine liver disease an unusual or allergic reaction to furosemide, sulfa drugs, other medicines, foods, dyes, or preservatives or trying to get breast-feeding What should I watch for while using this medicine? Visit your doctor or health managed care specialist for regular checks on your progress. Check your blood pressure regularly. Ask your doctor or health managed care specialist what your blood pressure should be, and when you should contact him or her. If you are a diabetic, check your blood sugar as directed. You may need to be on a special diet while taking this medicine. Check with your doctor. Also, ask how many glasses of fluid you need to drink a day. You must not get dehydrated. You may get drowsy or dizzy. Do not drive, use machinery, or do anything that needs mental alertness until you know how this drug affects you. Do not stand or sit up quickly, especially if you are an older patient. This reduces the risk of dizzy or fainting spells. Alcohol can make you more drowsy and dizzy. Avoid alcoholic drinks. This medicine can make you more sensitive to the sun. Keep out of the sun. If you cannot avoid being in the sun, wear protective clothing and use sunscreen. Do not use sun lamps or tanning beds/booths. You have been given the following additional information: Crohn's Disease Peripheral Edema, Bilateral Diet, Clear Liquid Hydrocodone Bitartrate, Acetaminophen Oral tablet Metronidazole Oral tablet Furosemide Oral tablet No driving or operating machinery while taking medication. Sedative medication was given during your visit. (Electronically signed by Demetrius Lan MD 01/09/2017 9:43)
== END 2017-01-08 20:05 | disposition home or self-care (01) ==
LOC: ED SRH 13:51
DX: R10.84 Generalized abdominal pain (principal); G89.29 Other chronic pain; R60.0 Localized edema; K50.90 Crohn's disease, unspecified, without complications; I10 Essential (primary) hypertension; J45.909 Unspecified asthma, uncomplicated; Z79.899 Other long term (current) drug therapy; F17.210 Nicotine dependence, cigarettes, uncomplicated; Z88.1 Allergy status to other antibiotic agents; Z88.0 Allergy status to penicillin
CPT/HCPCS: 90004; 90100; 90616; 91320; 91556; 92031; 92235; 92530; 92610; 94001; 94060; 95059